=== PATIENT | male | born 1960 | race African-American/Black ===

== ENCOUNTER 2020-01-16 09:40 | Emergency (ER) | payer SELFPAY ==
[~2020-01-16] VITALS: Ht 182.9 cm; Wt 124.7 kg
[2020-01-16] MEDS ORDERED: LORazepam Inj 2mg/ml 1ml IV ONE (09:45)
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
[2020-01-16] MEDS ORDERED: LORazepam Inj 2mg/ml 1ml ONE (09:55)
[2020-01-16 10:10] LABS: EOSINOPHILS % (AUTO) 3.8 % (0.0-3.0); HEMATOCRIT 47.3 % (42.0-52.0); HEMOGLOBIN 16.3 G/DL (14.2-18.0); LYMPHOCYTES % (AUTO) 49.1 % (20.0-45.0); MEAN CORPUSCULAR VOLUME 89 FL (80-99); MONOCYTES % (AUTO) 9.4 % (1.0-10.0); NEUTROPHILS % (AUTO) 34.7 % (45.0-75.0); PLATELET COUNT 125 K/UL (150-450); RED CELL DISTRIBUTION WIDTH 11.3 % (11.6-14.8); WHITE BLOOD COUNT 9.4 K/UL (4.8-10.8)
[2020-01-16] MEDS ORDERED: levETIRAcetam 1,000mg/NS100ml 100 ML IVPB ONE (10:15)
[2020-01-16 10:41] LABS: ANION GAP 30 mmol/L (5-15); BLOOD UREA NITROGEN 6 mg/dL (7-18); CALCIUM 9.6 MG/DL (8.5-10.1); CARBON DIOXIDE 13 MMOL/L (21-32); CHLORIDE 95 MMOL/L (98-107); CREATININE 1.7 MG/DL (0.55-1.30); POTASSIUM 2.9 MMOL/L (3.5-5.1); SODIUM 138 MMOL/L (136-145)
[2020-01-16 11:03] LABS: ALANINE AMINOTRANSFERASE 141 U/L (12-78); ALBUMIN 4.6 G/DL (3.4-5.0); ALBUMIN/GLOBULIN RATIO 1.2 (1.0-2.7); ALKALINE PHOSPHATASE 81 U/L (46-116); ASPARTATE AMINO TRANSFERASE 166 U/L (15-37); BILIRUBIN,TOTAL 2.5 MG/DL (0.2-1.0)
[2020-01-16 11:04] LABS: BILIRUBIN,DIRECT 0.6 MG/DL (0.0-0.3)
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
[2020-01-16 12:04] VITALS: BP 155/85
[2020-01-16] MEDS ORDERED: KEPPRA500 M4 ORAL (12:49)
[2020-01-16 13:08] VITALS: BP 147/109
[2020-01-16 13:57] VITALS: BP 159/90
== END 2020-01-16 13:57 | disposition home or self-care (01) ==
LOC: EDBD 09:40 → EMR 09:50
DX: G40.909 Epilepsy, unspecified, not intractable, without status epilepticus (principal); Z91.010 Allergy to peanuts; G93.89 Other specified disorders of brain
CPT/HCPCS: 36415; 70450; 80053; 82248; 85025; 96361; 96365; 96366; 96368; 96375; 99284; G0480; J1953; J7030; J8499

== ENCOUNTER 2020-05-20 16:09 | Emergency (ER) | payer OTHER ==
[~2020-05-20] VITALS: Ht 182.9 cm; Wt 131.5 kg
[~2020-05-20 16:09] MED LIST: KEPPRA500 M4 ORAL
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
[2020-05-20] MEDS ORDERED: FAMOTIDINE20 MG ORAL (16:15)
[2020-05-20] MEDS ORDERED: DILANTIN100 MG ORAL (16:15)
[2020-05-20] MEDS ORDERED: levETIRAcetam 1,000mg/NS100ml 100 ML IVPB ONE (16:15)
[2020-05-20] MEDS ORDERED: ASPIRIN81 MG ORAL (16:15)
[2020-05-20] MEDS ORDERED: IBUPROFEN600 M1 ORAL (16:16)
[2020-05-20] MEDS ORDERED: HYDROCHLOROTH12.5 MG ORAL (16:16)
[2020-05-20] MEDS ORDERED: XARELTO10 MG ORAL (16:17)
[2020-05-20 16:24] LABS: BASOPHILS % (AUTO) 2.5 % (0.0-2.0); EOSINOPHILS % (AUTO) 3.3 % (0.0-3.0); HEMATOCRIT 38.8 % (42.0-52.0); HEMOGLOBIN 13.1 G/DL (14.2-18.0); LYMPHOCYTES % (AUTO) 51.1 % (20.0-45.0); MEAN CORPUSCULAR VOLUME 96 FL (80-99); MONOCYTES % (AUTO) 9.5 % (1.0-10.0); NEUTROPHILS % (AUTO) 33.7 % (45.0-75.0); PLATELET COUNT 159 K/UL (150-450); RED BLOOD COUNT 4.03 M/UL (4.70-6.10); RED CELL DISTRIBUTION WIDTH 12.2 % (11.6-14.8); WHITE BLOOD COUNT 6.6 K/UL (4.8-10.8)
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
[2020-05-20 17:07] LABS: ANION GAP 9 mmol/L (5-15); BLOOD UREA NITROGEN 7 mg/dL (7-18); CALCIUM 8.4 MG/DL (8.5-10.1); CARBON DIOXIDE 30 MMOL/L (21-32); CHLORIDE 108 MMOL/L (98-107); CREATININE 1.1 MG/DL (0.55-1.30); POTASSIUM 3.3 MMOL/L (3.5-5.1); SODIUM 147 MMOL/L (136-145)
[2020-05-20 17:13] LABS: ALANINE AMINOTRANSFERASE 83 U/L (12-78); ALBUMIN 3.7 G/DL (3.4-5.0); ALBUMIN/GLOBULIN RATIO 0.9 (1.0-2.7); ALKALINE PHOSPHATASE 90 U/L (46-116); ASPARTATE AMINO TRANSFERASE 55 U/L (15-37); BILIRUBIN,TOTAL 0.6 MG/DL (0.2-1.0)
[2020-05-20] MEDS ORDERED: Phenytoin 1,000 MG in NS 275 ML IVPB ONE (17:30)
--- NOTE | 2020-05-20 18:12 | NUR ---
patients brother called states call him when he is ready to go home ( tl# [phone]) janell braswell
--- NOTE | 2020-05-20 19:00 | NUR ---
ED Nurse Note: Received pt from morning nurse. Patient is in bed resting. Denie any problem. Alert and oriented to person, plance and time.
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
--- NOTE | 2020-05-20 20:40 | NUR ---
ER DISCHARGE NOTE: Patient is cleared to be discharged per ERMD, pt is aox4, on room air, with stable vital signs. pt was given dc instructions, pt was able to verbalize understanding, pt id band and iv site removed without complications. pt is able to ambulate with steady gait. pt took all belongings.
--- NOTE | 2020-05-20 20:41 | NUR ---
Patient's brother Naren Traylor called an [employer] to transport him back home. pt wheeled outside, got in the [employer] car safely.
[2020-05-20 21:10] VITALS: BP 146/64
== END 2020-05-20 20:41 | disposition home or self-care (01) ==
LOC: EDBD 16:09 → EMR 16:32
DX: G40.909 Epilepsy, unspecified, not intractable, without status epilepticus (principal); F10.129 Alcohol abuse with intoxication, unspecified; S40.012A Contusion of left shoulder, initial encounter; Z91.14 Patient's other noncompliance with medication regimen; W19.XXXA Unspecified fall, initial encounter; Y92.9 Unspecified place or not applicable; Z79.899 Other long term (current) drug therapy; Z88.8 Allergy status to other drugs, medicaments and biological substances; Z86.718 Personal history of other venous thrombosis and embolism; Z79.01 Long term (current) use of anticoagulants
CPT/HCPCS: 36415; 70450; 73030; 73080; 80053; 80185; 82962; 85025; 93005; 96365; 96375; G0480; G0481; J1165; J1953; J7050; Z7502; 99284